=== PATIENT | female | born 1955 | race Caucasian/White ===

== ENCOUNTER 2022-07-25 08:39 | Outpatient (CLI) | payer MEDICARE, OTHER, SELFPAY ==
--- NOTE | ~2022-07-25 | CT_ITS ---
Noncontrast CT scan of the right lower extremity CLINICAL HISTORY: Preoperative planning for knee replacement TECHNIQUE: Axial noncontrast imaging of the entire right femur was performed, through the level of th e proximal tibia. Sagittal and coronal reformatted images about the right knee were performed. Dose r eduction technique was used on this scan by utilizing automated exposure control and iterative recons truction technique. FINDINGS: There are medial joint line osteophytes, with medial compartment narrowing and probable min imal reactive sclerotic change in the medial compartment. There are lateral joint line osteophytes wi th preservation of the lateral compartment joint space. There are moderate patellofemoral compartment osteophytes, mild narrowing along the lateral patellofemoral articulation. There is a subchondral cy stic change along the lateral patellar facet. There is additional spurring at the intercondylar notch . Small knee joint effusion present, with [id number] Rdew's cyst. No other gross soft tissue ab normality seen. IMPRESSION: Moderate tricompartmental osteoarthritis, as detailed above, worst in the medial compartment and the lateral aspect of the patellofemoral compartment. Small joint effusion with small to moderate Drew's cyst. Reviewed, dictated and finalized at location . [employer] SPORTS MANAGER IMPRESSION: Moderate tricompartmental osteoarthritis, as detailed above, worst in the media l compartment and the lateral aspect of the patellofemoral compartment. Small joint effusion with small to moderate Drew's cyst.
[2022-07-25 10:21] LABS: Hematocrit 43.9 % (37.0-47.0); Hemoglobin 14.4 g/dL (12.0-15.0)
[2022-07-25 10:26] LABS: Albumin Level 4.7 g/dL (3.5-5.1); Estimated Glomerular Filt Rate > 60; Glucose 96 mg/dL (65-110)
[2022-07-25 10:53] LABS: Urine Cotinine NEGATIVE
[2022-07-25 11:35] LABS: Hemoglobin A1C 5.6 % (<5.7)
== END 2022-07-25 08:40 | disposition home or self-care (01) ==
PROVIDERS: PCP Family Medicine; Visit Provider Orthopaedic Surgery
DX: M17.11 Unilateral primary osteoarthritis, right knee (principal); E11.9 Type 2 diabetes mellitus without complications; Z92.89 Personal history of other medical treatment; Z79.899 Other long term (current) drug therapy; M25.461 Effusion, right knee; M71.21 Synovial cyst of popliteal space [Baker], right knee
CPT/HCPCS: 73700; 80307; 82040; 82565; 82947; 83036; 85014; 85018

== ENCOUNTER 2022-08-14 12:08 | Outpatient (CLI) | payer MEDICARE, OTHER, SELFPAY ==
--- NOTE | 2022-08-14 | ECG_ITS ---
Measurements Intervals [place] Rate: 84 P: 27 VT: 136 QRS: 46 QRSD: 94 T: 52 QT: 382 QTc: 453 Interpretive Statements SINUS RHYTHM BORDERLINE ST ABNORMALITY- ANTEROLATERAL LEADS BORDERLINE ECG NO PREVIOUS ECG AVAILABLE FOR COMPARISON Electronically Signed On 08-14-2022 13:01:16 MARINE DIESEL MECHANIC by oGyo Anderson D.O.
== END 2022-08-14 12:09 | disposition home or self-care (01) ==
PROVIDERS: PCP Family Medicine; Visit Provider Orthopaedic Surgery
DX: M17.11 Unilateral primary osteoarthritis, right knee (principal); Z01.818 Encounter for other preprocedural examination; R94.31 Abnormal electrocardiogram [ECG] [EKG]
CPT/HCPCS: 93005

== ENCOUNTER 2022-10-03 11:35 | Outpatient (CLI) | payer MEDICARE, OTHER, SELFPAY ==
[2022-10-03 13:13] LABS: Basophils Absolute Auto 0.1 K/mm3 (0.0-0.1); Basophils Percent Auto 1.1 % (0.2-1.2); Eosinophils Absolute Auto 0.2 K/mm3 (0-0.3); Eosinophils Percent Auto 2.4 % (0-4.4); Hematocrit 44.4 % (37.0-47.0); Hemoglobin 14.2 g/dL (12.0-15.0); Immature Granulocyte Absolute 0.02 K/mm3 (0.00-0.031); Immature Granulocyte Percent A 0.3 % (0-0.5); Lymphocytes Absolute Auto 1.57 K/mm3 (0.9-3.2); Lymphocytes Percent Auto 19.8 % (18.3-44.2); Mean Corpuscular Hemoglobin 29.3 pg (26-34); Mean Corpuscular Volume 91.7 fl (80-100); Mean Platelet Volume 10.6 fl (7.4-10.4); Monocytes Absolute Auto 0.9 K/mm3 (0.1-0.6); Neutrophils Absolute Auto 5.2 K/mm3 (1.3-6.7); Neutrophils Percent Auto 65.4 % (45.5-73.1); Platelet Count Result 303 k/mm3 (150-375); Red Blood Count 4.84 M/mm3 (4.2-5.4); Red Cell Distribution Width 14.4 % (11.5-14.5); White Blood Count 7.9 K/mm3 (4.5-10.0)
[2022-10-03 13:46] LABS: Urine Cotinine NEGATIVE
[2022-10-03 13:53] LABS: Albumin Level 4.7 g/dL (3.5-5.1); Estimated Glomerular Filt Rate > 60; Glucose 81 mg/dL (65-110)
[2022-10-03 13:54] LABS: Hemoglobin A1C 5.4 % (<5.7)
== END 2022-10-03 11:36 | disposition home or self-care (01) ==
PROVIDERS: PCP Family Medicine; Visit Provider Orthopaedic Surgery
DX: M17.11 Unilateral primary osteoarthritis, right knee (principal); Z01.818 Encounter for other preprocedural examination
CPT/HCPCS: 80307; 82040; 82565; 82947; 83036; 85025; 87081

== ENCOUNTER 2022-10-30 01:22 | Day surgery (SDC) | payer MEDICARE, OTHER, SELFPAY ==
--- NOTE | 2022-10-03 11:20 | PC.NURSE ---
PRE-OP INSTRUCTIONS, PLEASE READ CAREFULLY Report to the Outpatient Waiting Room, entrance under the green pavilion located off [facility], at time _0830_ on date _10/30/22_. Planned Procedure Time: _1030_. PACK SMALL OVERNIGHT BAG AND LEAVE IN THE CAR ALONG WITH YOUR WALKER Time changes happen often and if your time is changed the preop area will call you the afternoon before. - You and your visitor will be asked to self-screen and do not enter if you have any COVID symptoms. - Only one visitor is requested with a max of two and NO children visitors are allowed at this time. - The patient visitor may be requested to leave or wait in car when not with patient due to distancing restrictions. - A mask is optional within the hospital at this time. -VISITING HOURS 8AM-8PM Patients may have clear liquids (water, carbonated beverages, clear teas, apple juice) until 3 hours prior to surgery (0830 AM) with a maximum of 20 ounces. - No food from midnight until time of surgery Take the following medications with a SIP of water the morning of surgery: _AMLODIPINE, PAROXETINE_ DO NOT STOP ANY OF YOUR OTHER PRESCRIPTION MEDICATIONS PRIOR TO SURGERY ?EXCEPT THE FOLLOWING Medications to discontinue per ANESTHESIA -_MULTIVITAMIN, PRIMROSE OIL 3 DAYS PRIOR TO SURGERY, Date to take last dose 10/26/22_ Please no make-up, nail romanian, hairspray, perfume, deodorant, or body powder the day of surgery. No jewelry (including any body piercings) or valuables the day of surgery, leave them at home. Please take a shower or bath the night before, or the morning of, surgery with an antibacterial soap. Wear comfortable, loose fitting clothing. - Jewelry must be removed prior to entering the operating room. Rings and piercings that are not removed may be cut off. - The hospital will not accept responsibility for valuables. - Please leave all valuables, including medications, at home the day of surgery. If you are going home after surgery, a licensed solid waste truck driver must drive you home. - NO public transportation without another adult if you receive anesthesia. - We recommend that an adult stay with you for 24 hours following discharge. - We also recommend that you do not drive, make important decision, drink alcoholic beverages, or take any drugs that were not prescribed by your health care provider for at least 24 hours after your discharge time. Follow any additional instructions given to you from your surgeon. If you or anyone in your household have experienced Covid symptoms in the past week, please notify your surgeon or the nurse liaison at the phone number below for possible testing. Instructions given to _PATIENT_and asked if any additional questions and then verbalized understanding. Patient advised to call surgeon office or pre surgery nurse liaison [phone] if any additional questions.
[2022-10-03 12:00] VITALS: BP 128/80; PULSE 72; RESP 18; TEMP 36.4; O2SAT 99; BMI 30.1
[2022-10-30] VITALS (14 sets, daily range): BP systolic 113–131; BP diastolic 58–79; PULSE 71–91; RESP 11–20; TEMP 36.3–36.7; O2SAT 94–99
--- NOTE | ~2022-10-30 | XR_ITS ---
Right Knee Technique: Portable AP and crosstable lateral views Clinical History: Status post TKR Findings: Patient is status post total knee replacement. Orthopedic hardware alignment appears anatom ic. No hardware complication is evident. Subcutaneous emphysema and swelling is likely postoperative in nature. No acute osseous fracture is seen. Impression: Status post total knee replacement, without evidence of hardware complication. Reviewed, dictated and finalized at location . Impression: Status post total knee replacement, without evidence of hardware complication.
[2022-10-30] MEDS: ACETAMINOPHEN 500 MG TABLET 1000 MG PO (09:41)
[2022-10-30] MEDS: TRANEXAMIC ACID 1,000MG/ISO100 1,000 MG/100 ML BAG 200 MG IVPB (10:06)
--- NOTE | 2022-10-30 10:09 | WPDANESEPPF ---
Anes - Initial Pre Proc Eval Procedure: Operation Date: 10/30/22 10:30 Proposed Procedures p Right Custom Total Knee Arthroplasty - Renard Padilla MD Date/Time: 10/30/22 10:09 Surgeon: Renard Padilla MD Pre Op Diagnosis: primary OA right knee Patient Data Age: 67 Gender: F Height: 1.7 m Weight: 88 kg Last Vital Signs Temp 36.3 C L 10/30/22 08:42 Pulse 71 10/30/22 08:42 Resp 16 10/30/22 08:42 BP 122/79 10/30/22 08:42 Pulse Ox 98 10/30/22 08:42 O2 Del Method Room Air 10/30/22 08:42 Allergies Allergy/AdvReac Type Severity Reaction Status Date / Time No Known Allergies Allergy Verified 10/30/22 09:01 Home Medications Medication Instructions Recorded Confirmed Type amlodipine 10 mg tablet 10 mg PO DAILY 10/13/21 10/30/22 History evening primrose oil 500 mg capsule 500 mg PO HS 10/13/21 10/30/22 History famotidine 20 mg tablet 20 mg PO BID 10/13/21 10/30/22 History fenofibrate micronized 134 mg 134 mg PO DAILY 10/13/21 10/30/22 History capsule pantoprazole 40 mg tablet,delayed 40 mg PO QAM 10/13/21 10/30/22 History release paroxetine HCl 20 mg tablet 20 mg PO DAILY 10/13/21 10/30/22 History pqxayhsk-lzi-dbklb ac 400 1 tablet PO DAILY 10/03/22 10/30/22 History mcg-calcium carb 500 mg-vit K1 20 mcg tablet (Women's 50 Plus Multivitamin) Patient hx anesthesia problems: none Family hx anesthesia problems: none Results Review: All pre-operative results and documents have been reviewed as part of the pre-operative evaluation. [facility] Past Medical History Medical History Diabetes History of stress test (~2018) Hyperlipemia Ovarian cancer (~2018) Family History Family History Father Lung cancer Social History Social History Smoking packs per day: 1 Smoking cigarettes per day: 20.0 Years smoked: 15 Smoking pack-years: 15.00 Smoking status: Former smoker Tobacco type: cigarettes Second hand tobacco smoke exposure: No Smoking end date: 08/05/80 Additional smoking assessment comments: DENIES ALL FORMS OF TOBACCO USE Alcohol intake: current Drinks per week: 7 Alcohol use details: GLASS WINE/NIGHT Substance use: never Substance use type: does not use Lack of Transportation: No Lack of Food: Never True Current Housing: I Have Housing Concerned About Future Housing: No Difficulty Paying Gas/Electric Bills: No Difficulty Paying for Meds: No Currently Unemployed: No Education: Master's Degree or Higher Difficulty w/ Childcare or Family Care: No Living arrangements: alone Anes - Eval Final PreProcedure Day of Procedure 10/30/22 10:09 Patient weight: overweight Heart: regular rate and rhythm Lungs: decreased breath sounds Airway: Mallampati scale class II Neurological: alert and oriented Last oral intake: >/= 8 hours ASA classification: III Emergent: no Anesthetic plan: proceed Anesthesia type and monitoring: general LMA and standard monitoring Results Review: All pre-operative results and documents have been reviewed as part of the pre-operative evaluation. Informed Consent: The patient's anesthetic plan and its attendant risks and benefits were discussed with the patient/family/POA. Questions were solicited and answers provided to the satisfaction of the patient/family/POA.
--- NOTE | 2022-10-30 10:09 | WPDHPUPDATE1 ---
History and Physical Update Update Date/Time: 10/30/22 10:09 History and Physical has been reviewed, including an updated exam of the patient. There are NO changes in the patient's condition. Risks, benefits, and alternatives have been discussed and questions answered. Patient agrees to proceed with procedure.
[2022-10-30] MEDS: LACTATED RINGERS 1,000 ML 30 ML IV CONT ×2 (10:15)
[2022-10-30] MEDS: SCOPOLAMINE 1.5 MG PATCH TRANSDERM (10:16)
[2022-10-30] MEDS: ceFAZolin 2 GM/D5W 50 ML 2 GM/50 ML BAG IVPB ×2 (10:30→18:58)
[2022-10-30] MEDS: GENTAMICIN BONE CEMENT REFOBACIN 1 EACH TOPICAL (10:57)
[2022-10-30] MEDS: fentaNYL CITRATE INJ (*CRX) 100 MCG/2 ML VIAL 25 MCG IV PUSH ×2 (12:50→12:53)
--- NOTE | 2022-10-30 13:08 | W.PM.PROC2 ---
Procedure Note - Detailed Date of Procedure 10/30/22 Pre-op Diagnosis primary OA right knee Post-op Diagnosis Same Procedure Performed Total knee arthroplasty, right Surgeon Renard Padilla MD Mold Designer Cecy Wild PA-C Anesthesia General and Regional (Subsartorial block.) Findings Severe varus disease. Good bone quality. PCL intact. Patella thin but adequate for resurfacing. No release required. Description of Procedure Preoperative antibiotics were given. The limb was prepped and draped in the usual sterile fashion with a well-padded tourniquet high on the thigh. The limb was exsanguinated and the tourniquet inflated to 300 mmHg. A longitudinal incision was created just medial to the patella. A trivector approach to the knee was performed. Arthrotomy was taken down through the joint capsule. No significant releases were initially taken. The femur was exposed and the F1 jig was applied. The coring tool was used to remove the cartilage for the F2 jig to sit flush with the bone. The jig was pinned and the distal cut carefully taken. Caliper measurements confirmed appropriate bony resections according to the preoperative templated plan. The F4 cutting jig for the femur was applied, at the standard rotation. The AP and anterior chamfer cuts were taken. The F5 jig was applied and the posterior chamfer cuts were taken. The tibia was prepared using the T1 jig, after removing cartilage for the jig contact points. Proper alignment was checked with the alignment edward. The tibia was cut using the T1u guide. Gap balancing was performed. Gap measurements were taken and the knee was trialed. Excellent alignment and soft tissue balancing was confirmed. The posterior cruciate ligament was recessed along the proximal tibia. The patella was cut for resurfacing. Three lug holes were drilled. Meniscal remnants were removed. The trial components were assembled. Excellent range of motion and proper soft tissue balancing were confirmed throughout the full range of motion. Patellar tracking was excellent. The knee was copiously irrigated periodically throughout the procedure. The real implants were cemented into position. Excess cement was carefully removed. The wound was closed in layers with interrupted #1 Vicryl suture, 2-0 strata fix suture, 0 strata fix suture, 2-0 strata fix suture. Steri-Strips placed on the skin with the knee flexed. Sterile bulky dressing applied. The patient was brought to the recovery room in stable condition. There were no complications. Physician press operator assistant, eCcy Wild PA-C, required for surgery; including patient positioning, draping, tissue retraction, maintaining instrument position, cement removal, wound closure, and dressing placement. Implants Conformis Custom total knee arthroplasty. Cemented. Cruciate retaining. 7mm insert. 32 mm round patella. Estimated Blood Loss -100.0 Drains No Pathology None sent Complications No immediate complications Condition Stable Disposition PACU [facility] Billing Surgery - Charge Forward: Surgery Billing
[2022-10-30] MEDS: diphenhydrAMINE HCl INJ 50 MG/ML VIAL 12.5 MG IV PUSH (13:18)
--- NOTE | 2022-10-30 14:57 | ADMGEN ---
This patient, Maureen Tovar, was admitted to 2 Medical Room 255-01. Patient/family oriented to hospital policies and general routines including ID bracelet, bed and alarms, visiting hours, pain management, procedures, bathroom and other care routines, personal items, smoking policy, room service/diet, and visiting hours. Information on how to activate the Rapid Response Team has been discussed. Patient/Family are encouraged to report perceived risks to care and to ask questions if they do not understand what they are told or what they should do.
--- NOTE | 2022-10-30 18:53 | PC.NURSE ---
Pharmacy called at 18:20 regarding missing 17:00 medications. Pharmacy did not answer, left a voice message.
[2022-10-30] MEDS: SENNA/DOCUSATE SODIUM TABLET 2 TAB PO (18:58)
[2022-10-30] MEDS: ASPIRIN 81 MG ENTERIC TABLET PO (18:58)
[2022-10-30] MEDS: MELOXICAM 7.5 MG TABLET PO (20:17)
[2022-10-30] MEDS: FAMOTIDINE 20 MG TABLET PO (20:17)
[2022-10-30] MEDS: FENOFIBRATE NANOCRYSTALLIZED 145 MG TABLET PO (20:17)
[2022-10-30] MEDS: oxyCODONE HCL (*CRX) 5 MG TAB IR 10 MG PO (22:45)
[2022-10-31 00:15] VITALS: BP 113/87; PULSE 78; RESP 18; TEMP 36.7; O2SAT 95
[2022-10-31] MEDS: ceFAZolin 2 GM/D5W 50 ML 2 GM/50 ML BAG IVPB ×2 (02:07→10:49)
[2022-10-31 04:32] VITALS: BP 125/68; PULSE 72; RESP 18; TEMP 36.9; O2SAT 94
[2022-10-31 05:05] LABS: Basophils Percent Auto 0.3 % (0.2-1.2); Hematocrit 35.6 % (37.0-47.0); Hemoglobin 11.6 g/dL (12.0-15.0); Immature Granulocyte Absolute 0.08 K/mm3 (0.00-0.031); Immature Granulocyte Percent A 0.5 % (0-0.5); Lymphocytes Absolute Auto 0.88 K/mm3 (0.9-3.2); Lymphocytes Percent Auto 5.6 % (18.3-44.2); Mean Corpuscular HGB Conc 32.6 g/dl (32-36); Mean Corpuscular Hemoglobin 29.1 pg (26-34); Mean Corpuscular Volume 89.2 fl (80-100); Mean Platelet Volume 10.7 fl (7.4-10.4); Monocytes Absolute Auto 1.4 K/mm3 (0.1-0.6); Monocytes Percent Auto 9.1 % (2.6-8.5); Neutrophils Absolute Auto 13.4 K/mm3 (1.3-6.7); Neutrophils Percent Auto 84.5 % (45.5-73.1); Platelet Count Result 214 k/mm3 (150-375); Red Blood Count 3.99 M/mm3 (4.2-5.4); Red Cell Distribution Width 15.1 % (11.5-14.5); White Blood Count 15.8 K/mm3 (4.5-10.0)
[2022-10-31 05:16] LABS: Anion Gap 7 mmol/L (8-16); Blood Urea Nitrogen 16 mg/dL (7-17); Calcium 8.6 mg/dL (8.4-10.2); Carbon Dioxide 28 mmol/L (22-30); Chloride 102 mmol/L (98-107); Estimated CRCL calculation 87 ml/min; Estimated Glomerular Filt Rate > 60; Glucose 105 mg/dL (65-110); Potassium 4.3 mmol/L (3.4-5.0); Sodium 137 mmol/L (137-145)
[2022-10-31] MEDS: amLODIPine BESYLATE 5 MG TABLET 10 MG PO (08:29)
[2022-10-31] MEDS: predniSONE 5 MG TABLET PO (08:29)
[2022-10-31] MEDS: SENNA/DOCUSATE SODIUM TABLET 2 TAB PO (08:30)
[2022-10-31] MEDS: ASPIRIN 81 MG ENTERIC TABLET PO (08:30)
[2022-10-31] MEDS: MELOXICAM 7.5 MG TABLET PO (08:30)
[2022-10-31] MEDS: PANTOPRAZOLE 40 MG TABLET PO (08:31)
[2022-10-31] MEDS: PARoxetine 20 MG TABLET PO (08:31)
[2022-10-31] MEDS: FAMOTIDINE 20 MG TABLET PO (08:32)
[2022-10-31] MEDS: polyethylene glycoL 3350 17 GM POWD.PACK PO (08:32)
[2022-10-31] MEDS: oxyCODONE HCL (*CRX) 5 MG TAB IR PO (08:33)
--- NOTE | 2022-10-31 08:33 | PM.DS ---
DS: Admitting Diagnosis Discharge Date 10/31/22 Admitting Diagnosis OA knee Right DS: Discharge Diagnosis Discharge Diagnosis Plan Postop day 1: Right total knee arthroplasty. Patient tolerated procedure well. No complications. Pain manageable with pain medication. No numbness or tingling. We had a lengthy discussion regarding postoperative wound care, limitations, expectations, and exercises. Patient shows good understanding. She has had initial physical therapy and is tolerating it well. DVT prophylaxis: 81 mg baby aspirin b.i.d. for 14 days. Pain medication: Percocet. Prednisone. Meloxicam. Patient has followup appointment with Dr. Padilla in 3 weeks. DS: Summary Hospital Course Reason for hospitalization: Total knee arthroplasty Hospital Course: Patient tolerated procedure well. Has had initial PT/OT. No complications. Pain well managed. Status at Discharge Functional status at discharge: uses cane/walker Overall status at discharge: patient is progressing back to baseline Time Spent with Patient Time attestation: Total time spent providing and/or coordinating discharge services: Exam Narrative: Overweight 67 y/o female. Resting comfortably in bed. No acute distress. A&O x3. Wearing compression socks bilaterally. Dressing intact with pea sized bloody drainage. Moderate swelling. No ecchymosis. No erythema. No hematoma. Good early range of motion. Calf nontender. Neurologic status intact. No varicosities. Distal pulses palpable. DS: Data Data Completed and Pending Labs on day of discharge: Labs from last 24 hours 10/31/22 10/31/22 10/30/22 04:41 04:41 08:58 WBC 15.8 H RBC 3.99 L Hgb 11.6 L Hct 35.6 L MCV 89.2 MCH 29.1 MCHC 32.6 RDW 15.1 H Plt Count 214 MPV 10.7 H Immature Gran % (Auto) 0.5 Neut % (Auto) 84.5 H Lymph % (Auto) 5.6 L [place] % (Auto) 9.1 H Eos % (Auto) 0.0 Baso % (Auto) 0.3 Lymph # (Auto) 0.88 L [place] # (Auto) 1.4 H Eos # (Auto) 0.0 Baso # (Auto) 0.0 Abs Immat Gran (auto) 0.08 H Absolute Neuts (auto) 13.4 H Absolute Nucleated RBC 0.0 Nucleated RBC % 0.0 Sodium 137 Potassium 4.3 Chloride 102 Carbon Dioxide 28 Anion Gap 7 L BUN 16 Creatinine 0.60 L Estim Creat Clear Calc 87 Estimated GFR > 60 Glucose 105 Calcium 8.6 Blood Type A Negative Antibody Screen Negative Discharge Plan Discharge Patient Disposition: Home, Self-Care Discharge Instructions: Remove the Scopolamine patch that was placed behind your ear in 72 hours or less. Wash your hands after touching. Follow green orthopedic instruction sheets. Stand Alone Forms: General Discharge Instructions Follow-up/Referrals: Cecy Wild PA [Physician Dog Pound Attendant] - Discharge Medications: New aspirin 81 mg tablet,delayed release (DR/EC) 81 mg PO BID 14 Days Qty: 28 0RF meloxicam 15 mg tablet 15 mg PO DAILY Qty: 30 0RF Rx Instructions: Cut in half. Take 1/2 in morning and 1/2 at night. Take with food. Stop if stomach upset. prednisone 5 mg tablet 5 mg PO DAILY 21 Days Qty: 21 0RF oxycodone-acetaminophen 5-325 mg tablet 1 - 2 tablet PO Q4-6H MDD 6 PRN (Reason: pain) Qty: 30 0RF Continued amlodipine 10 mg tablet 10 mg PO DAILY paroxetine HCl 20 mg tablet 20 mg PO DAILY pantoprazole 40 mg tablet,delayed release (DR/EC) 40 mg PO QAM fenofibrate micronized 134 mg capsule 134 mg PO DAILY Label Comments: @ HS famotidine 20 mg tablet 20 mg PO BID evening primrose oil 500 mg capsule 500 mg PO HS Rx Instructions: give with meal/snack Women's 50 Plus Multivitamin 400 mcg-500 mg calcium-20 mcg tablet 1 tablet PO DAILY
[2022-10-31 08:35] VITALS: O2SAT 94
--- NOTE | 2022-10-31 10:29 | P.PNAN_ITS ---
Anes - Prog Note Post-Op Date/Time: 10/31/22 10:29 Cardiovascular status: normal Respiratory status: normal Airway patency: baseline Mental status: baseline Post-Op hydration status: normal Vital Signs: Last Vital Signs Temp 36.9 C 10/31/22 04:32 Pulse 72 10/31/22 04:32 Resp 18 10/31/22 04:32 BP 125/68 10/31/22 04:32 Pulse Ox 94 10/31/22 04:32 O2 Del Method Room Air 10/30/22 15:33 O2 Flow Rate 2 10/30/22 14:20 Pain Score (VAS): 10/12 I/O: Intake & Output 10/30/22 10/31/22 10/31/22 23:59 07:59 15:59 Intake Total 690 150 Output Total 850 650 Balance -160 150 -650 Laboratory Tests 10/31/22 04:41 10/31/22 04:41 10/30/22 10/31/22 10/31/22 08:58 04:41 04:41 WBC 15.8 H RBC 3.99 L Hgb 11.6 L Hct 35.6 L MCV 89.2 MCH 29.1 MCHC 32.6 RDW 15.1 H Plt Count 214 MPV 10.7 H Immature Gran % (Auto) 0.5 Neut % (Auto) 84.5 H Lymph % (Auto) 5.6 L [place] % (Auto) 9.1 H Eos % (Auto) 0.0 Baso % (Auto) 0.3 Lymph # (Auto) 0.88 L [place] # (Auto) 1.4 H Eos # (Auto) 0.0 Baso # (Auto) 0.0 Abs Immat Gran (auto) 0.08 H Absolute Neuts (auto) 13.4 H Absolute Nucleated RBC 0.0 Nucleated RBC % 0.0 Sodium 137 Potassium 4.3 Chloride 102 Carbon Dioxide 28 Anion Gap 7 L BUN 16 Creatinine 0.60 L Estim Creat Clear Calc 87 Estimated GFR > 60 Glucose 105 Calcium 8.6 Antibody Screen Negative Post-procedural complaints: none Patient Feedback: Patient satisfied with anesthetic care.
--- NOTE | 2022-10-31 12:20 | PC.NURSE ---
pt sent home with continuous ice therapy, reviewed in detail discharge instructions and use of equipment, pt and daughter understand and ask appropriate questions
--- NOTE | 2022-11-02 07:13 | WPDANESPNB ---
Anes - Peripheral Nerve Block Date/Time: 11/02/22 07:13 I have discussed with the patient/family/POA the placement of a peripheral nerve block for post-operative pain management, including associated risks, benefits, complications, and side effects. Alternative methods of post-operative analgesia were detailed. Questions were solicited and answers provided to the satisfaction of the patient/family/POA. Time-Out: A pre-procedural Time-Out was completed immediately before starting the procedure and confirmed: Patient Identification, Site, Procedure, Patient Position and the Availability of Requisite Equipment. Clinical Indications: Acute post-operative pain management requested by the operative surgeon. Nerve Block Insertion Note Anes-nerve block: adductor canal right Patient position: supine Skin prep: chlorhexidine Needle: 22 gauge, stimulating, insulated echogenic needle. Needle length: 80 mm Technique: ultrasound Technique comment: mid2mg [email or web address] late entry Injectate: bupivacaine 0.5% with epi 5 mcg/ml (30ml no epi ) and dexamethasone (mg) (4) Observations: tolerated well Complications: none Procedure start time:: 101 Procedure end time:: 1020
== END 2022-10-31 12:21 | disposition home or self-care (01) ==
LOC: ANHSURGERY 10:19 → ANH2MED 14:55
PROVIDERS: Physician Assistant Surgical; PCP Family Medicine; Visit Provider Orthopaedic Surgery
PROC: (CPT 27447; principal; 2022-10-30 10:30)
DX: M17.11 Unilateral primary osteoarthritis, right knee (principal); G89.18 Other acute postprocedural pain; E11.9 Type 2 diabetes mellitus without complications; E78.5 Hyperlipidemia, unspecified; Z85.43 Personal history of malignant neoplasm of ovary; Z87.891 Personal history of nicotine dependence
CPT/HCPCS: 27447; 64447; 36415; 73560; 80048; 85025; 86850; 86900; 86901; 97110; 97161; 97165; 97530; A9270; C1713; C1776; J0131; J0171; J0690; J1100; J1170; J1200; J1885; J2250; J2270; J2405; J2704; J2795; J3010; J7120; J7512

== ENCOUNTER 2023-11-08 16:17 | Outpatient (CLI) | payer MEDICARE, OTHER, SELFPAY ==
--- NOTE | ~2023-11-08 | XR_ITS ---
EXAM: XR knee RT 3V, XR knee LT min 4V DATE: 11/08/2023 16:38 (accession [id number]), 11/08/2023 16:39 (accession [id number]) HISTORY: Z96.651 - Presence of right artificial knee joint . COMPARISON: 05/24/2023, images only. FINDINGS: Decreased mineralization. Uncomplicated appearing right total knee arthroplasty. Moderate medial joint space narrowing and mild tricompartmental osteophytosis in the left knee. Small bilatera l knee joint fluid collections. No fracture. No lytic or blastic lesion. No periosteal erosions. IMPRESSION: Tricompartmental left knee osteoarthritis, moderate in the medial compartment. Uncomplica heidy right knee arthroplasty. Small bilateral knee joint effusions. Reviewed, dictated and finalized at location K. IMPRESSION: Tricompartmental left knee osteoarthritis, moderate in the medial c ompartment. Uncomplicated right knee arthroplasty. Small bilateral knee joint e ffusions.
== END 2023-11-08 16:18 | disposition home or self-care (01) ==
LOC: ANHIMG 16:21
PROVIDERS: Visit Provider Orthopaedic Surgery
DX: M17.12 Unilateral primary osteoarthritis, left knee (principal); Z96.651 Presence of right artificial knee joint; M25.461 Effusion, right knee; M25.462 Effusion, left knee
CPT/HCPCS: 73562; 73564

== ENCOUNTER 2023-12-16 09:41 | Outpatient (CLI) | payer MEDICARE, OTHER, SELFPAY ==
--- NOTE | ~2023-12-16 | CT_ITS ---
EXAMINATION: CT LE LT wo con DATE: 12/16/2023 10:28 INDICATION: Left knee osteoarthritis. TECHNIQUE: Computed tomography (CT) of the left lower limb was performed without intravenous contrast . Automated exposure control and iterative reconstruction technique were employed. The dose-length pr oduct was 1764.15 mGy-cm. COMPARISON: Left knee radiographs 11/08/2023 FINDINGS: There is severe osteoarthritis of left sacroiliac joint. There is mild left hip osteoarthri tis. Left knee demonstrates moderate osteoarthritis of the medial and patellofemoral compartments and mild osteoarthritis of the lateral compartment. There is a small knee joint effusion. There is a sma ll Drew's cyst. There is polyarticular osteoarthritis in the foot, severe at the third tarsometatars al joint. IMPRESSION: 1. Moderate left knee osteoarthritis. 2. Small left knee joint effusion. 3. Small Drew's cyst. Reviewed, dictated and finalized at location A.
--- NOTE | 2023-12-16 10:31 | ECG_ITS ---
SEE SCANNED COPY FOR CONFIRMED REPORT MTDD
[2023-12-16 11:51] LABS: Hematocrit 44.9 % (37.0-47.0); Hemoglobin 14.3 g/dL (12.0-15.0)
[2023-12-16 12:13] LABS: Albumin Level 4.2 g/dL (3.5-5.1); Estimated Glomerular Filt Rate > 60; Glucose 72 mg/dL (65-110)
[2023-12-16 13:24] LABS: Hemoglobin A1C 5.4 % (<5.7)
== END 2023-12-16 09:42 | disposition home or self-care (01) ==
PROVIDERS: PCP Family Medicine; Visit Provider Orthopaedic Surgery
DX: Z01.818 Encounter for other preprocedural examination (principal); M17.12 Unilateral primary osteoarthritis, left knee; M25.462 Effusion, left knee; M71.22 Synovial cyst of popliteal space [Baker], left knee; E11.9 Type 2 diabetes mellitus without complications; Z92.89 Personal history of other medical treatment
CPT/HCPCS: 36415; 73700; 82040; 82565; 82947; 83036; 85014; 85018; 93005